=== PATIENT | female | born 1955 | race Two or more races ===

== ENCOUNTER 2025-05-23 11:55 | Emergency (ER) | payer OTHER, MEDICAID ==
[~2025-05-23] VITALS: Ht 157.5 cm; Wt 63.4 kg
--- NOTE | 2025-05-23 14:37 | ED.PDOC ---
SOB-HPI HPI Comments 69 y/o F, with PMHx of asthma presents to the ED for CC of asthma flare-up. Patient states, she has been having an asthma flare-up x4days. Patient reports, that she has been unable to pickle cutter her rescue inhalers from her pharmacy. At this time patient is stating at 97% on R.A. Patient denies fever, chills, chest pain, or shortness of breath. No other symptoms or modifying factors are present at this time. 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 Hx Family History Family History: Unknown Social History Smoker: Non-Smoker Alcohol: Denies ETOH Use Drugs: Denies Drug Use Lives In: Home Constitutional: denies: chills, diaphoresis, fatigue, fever, malaise, sweats, weakness, others EENTM: denies: blurred vision, double vision, ear bleeding, ear discharge, ear drainage, ear pain, ear ringing, eye pain, eye redness, hearing loss, mouth pain, mouth swelling, nasal discharge, nose bleeding, nose congestion, nose pain, photophobia, tearing, throat pain, throat swelling, voice changes, others Respiratory: denies: cough, hemoptysis, orthopnea, SOB at rest, shortness of breath, SOB with excertion, stridor, wheezing, others Cardiovascular: denies: chest pain, dizzy spells, diaphoresis, Dyspnea on exertion, edema, irregular heart beat, left arm pain, lightheadedness, palpitations, PND, syncope, others Gastrointestinal: denies: abdomen distended, abdominal pain, blood streaked bowels, constipated, diarrhea, dysphagia, difficulty swallowing, hematemesis, melena, nausea, poor appetite, poor fluid intake, rectal bleeding, rectal pain, vomiting, others Genitourinary: denies: abnormal vagina bleeding, burning, dyspareunia, dysuria, flank pain, frequency, hematuria, incontinence, pain, , vagina discharge, urgency, others Neurological: denies: dizziness, fainting, headache, left sided numbness, left sided weakness, numbness, paresthesia, pre-existing deficit, right sided numbness, right sided weakness, seizure, speech problems, tingling, tremors, weakness, others Musculoskeletal: denies: back pain, gout, joint pain, joint swelling, muscle pain, muscle stiffness, neck pain, others Integumetry: denies: bruises, change in color, change in hair/nails, dryness, laceration, lesions, lumps, rash, wounds, others Allergic/Immunocompromised: denies: Difficulty Healing, Frequent Infections, Hives, Itching, others Hematologic/Lymphatic: denies: anemia, blood clots, easy bleeding, easy bruising, swollen glands, others Endocrine: denies: excessive hunger, excessive sweating, excessive thirst, excessive urination, flushing, intolerance to cold, intolerance to heat, unexp lained weight gain, unexplained weight loss, others Psychiatric: denies: anxiety, bipolar disorder, depression, hopeless, panic disorder, schizophrenia, sleepless, suicidal, others All Other Systems: Reviewed and Negative Physical Exam General Appearance: Moderate Distress HEENT: Normal ENT Inspection, PERRL/EOMI Neck: Full Range of Motion, Non-Tender, Normal, Normal Inspection Respiratory: Crackles, Decreased Breath Sounds, Expiration, Inspiration, No Respiratory Distress, Rhonchi, Wheezing Cardiovascular: No Edema, No JVD, No Murmur, No Gallop, Normal Peripheral Pulses, Regular Rate/Rhythm Breast Exam: Deferred Gastrointestinal: No Organomegaly, Non Tender, No Pulsatile Mass, Normal Bowel Sounds, Soft Genitalia: Deferred Pelvic: Deferred Rectal: Deferred Extremities: No calf tenderness, Normal capillary refill, Normal inspection, Normal range of motion, Non-tender, No pedal edema Neurologic: Alert, guest services attendant II-XII nml as Tested, No Motor Deficits, Normal Affect, Normal Mood, No Sensory Deficits Cerebellar Function: Normal Reflexes: Normal Skin: Dry, Normal Color, Warm Peripheral Pulses: 1+ carotid (R), 1+ carotid (L) Lymphatic: No Adenopathy Was a procedure done? Was a procedure done?: No Differential Dx Differential Diagnosis: Asthma X-Ray, Labs, Meds, VS Vital Signs Date Time Temp Pulse Resp B/P (MAP) Pulse Ox O2 Delivery O2 Flow Rate FiO2 05/23/25 13:47 67 18 122/87 (99) 100 05/23/25 11:58 19 98 Room Air* 0 21 05/23/25 11:58 98.1 72 19 140/89 98 98.1 Current Medications Medications (Trade) Dose Ordered Sig/Yohana Route Start Time Stop Time Status Last Admin Albuterol (Ventolin Medneb) 5 mg ONCE ONCE NEB 05/23/25 15:30 05/23/25 15:31 DC 05/23/25 15:52 Ipratropium [place] (Atrovent Medneb) 0.5 mg ONCE ONCE NEB 05/23/25 15:30 05/23/25 15:31 DC 05/23/25 15:52 X-Ray, Labs, Meds, VS Comment Course in the fast track pulmonary patient came in because he has been asthma she received the med neighbor and feels much been she also received the Decadron 6 mg IM Patient he is better and she will be discharged home Time of 1ST Reevaluation: 15:00 Reevaluation 1ST: Unchanged Time of 2ND Reevaluation: 16:36 Reevaluation 2ND: Improved Consultation: PCP Patient Education/Counseling: Diagnosis, Treatment, Prognosis, Need For Follow Up Family Education/Counseling: Diagnosis, Treatment, Prognosis, Need For Follow Up, No Family Present SEPSIS Sepsis Screen Date sepsis recognized/suspect: May 23, 2025 Time Sepsis recognized/suspect: 1201 Recent Procedure: No On Antibiotic Therapy: No Respiratory Rate >20: No Heart Rate >90: No Temp<36 C (96.8 F) or >38.3 C: No SBP <90 or MAP <65 mmHG: No New Acute Mental Status Change: No Is the patient on CPAP, BIPAP,: No Vital Signs Date Time Temp Pulse Resp B/P (MAP) Pulse Ox O2 Delivery O2 Flow Rate FiO2 05/23/25 13:47 67 18 122/87 (99) 100 05/23/25 11:58 19 98 Room Air* 0 21 05/23/25 11:58 98.1 72 19 140/89 98 98.1 Medications Medications Dose Ordered Sig/Yohana Route Start Time Stop Time Status Last Admin Dose Admin Albuterol 5 mg ONCE ONCE NEB 05/23/25 15:30 05/23/25 15:31 DC 05/23/25 15:52 Ipratropium [place] 0.5 mg ONCE ONCE NEB 05/23/25 15:30 05/23/25 15:31 DC 05/23/25 15:52 Departure 1 Departure Time of Disposition: 16:37 Impression: Primary Impression: Asthmatic bronchitis Qualified Codes: J45.40 - Moderate persistent asthma, uncomplicated Disposition: HOME / SELF CARE / HOMELESS Condition: Fair Additional Instructions: Follow up with your PCP e-Prescriptions Azithromycin (Zithromax) 500 Mg Tab 1 TAB PO DAILY for 5 Days, #5 TAB Prov: JOSE MANUEL ROBBINS MD 05/23/25 Prednisone (Prednisone) 20 Mg Tab 20 MG PO BID for 5 Days, #10 MG Prov: JOSE MANUEL RBOBINS MD 05/23/25 Albuterol Sulfate (Albuterol Sulfate Hfa) 108 Mcg/Act Aer 108 MCG IN TID for 10 Days, #1 AER Prov: JOSE MANUEL ROBBINS MD 05/23/25 Discharged With: Self Critical Care Note Critical Care Time?: No Stability Stability form required: No Heart Score Heart Score: Heart Score Response (Comments) Value History N/A 0 EKG N/A 0 Age >65 2 Risk Factors 1 or 2 risk factors 1 Troponin N/A 0 Total 3 I personally scribed for JOSE MANUEL ROBBINS MD ([email or web address]) on 05/23/25 at 14:37. Electronically submitted by Pema Lugo [email or web address]). JOSE MANUEL ROBBINS MD May 23, 2025 14:37
[2025-05-23] MEDS: ALBUTEROL SULF 2.5 MG/0.5ML(0.5%) NEB SOLN ONE (15:37)
[2025-05-23] MEDS: IPRATROPIUM BROM 0.5 MG/2.5ML INH SOL ONE (15:37)
[2025-05-23] MEDS: ALBUTEROL SULF 2.5 MG/0.5ML(0.5%) NEB SOLN NEB ONE (15:52)
[2025-05-23] MEDS: IPRATROPIUM BROM 0.5 MG/2.5ML INH SOL NEB ONE (15:52)
[2025-05-23] MEDS ORDERED: ALBU108A5 IN (16:41)
[2025-05-23] MEDS ORDERED: PRED20TA2 PO (16:41)
[2025-05-23] MEDS ORDERED: AZIT500T PO (16:41)
[2025-05-23 16:47] VITALS: BP 155/93; PULSE 73; RESP 17; TEMP 97.7; O2SAT 98
== END 2025-05-23 17:19 | disposition home or self-care (01) ==
LOC: ER 11:55
DX: J45.909 Unspecified asthma, uncomplicated (principal)
CPT/HCPCS: 94640; 96372; J1100